=== PATIENT | female | born 1930 | race Caucasian/White ===

== ENCOUNTER 2016-05-06 05:00 | Inpatient (IN) | payer MEDICARE ==
[~2016-05-06] VITALS: Ht 154.9 cm; Wt 54.9 kg
[2016-05-06] VITALS (29 sets, daily range): BP systolic 77–201; BP diastolic 35–98
--- NOTE | ~2016-05-06 | PR ---
[place], [place] PROGRESS NOTE NAME: RAKEL RESTREPO [facility] #: [id number] UNIT #: [id number] ROOM: [facility] DOCTOR: ORALIA CERDA MD BIRTHDATE: [birth year] DOS: 05/08/2016 CARDIOLOGY PROGRESS NOTE SUBJECTIVE: The patient was seen at her bedside in the intensive care unit on 05/08/2016. The patient was seen at her bedside today. She tells me that she feels well. Unfortunately, she continues to have problems with hypotension every time she is given a beta cosme. Nitrates have been withheld for several days. Diuretics are also being withheld at this time. She is on aspirin, clopidogrel, and enoxaparin. She is also on antibiotics for possible pneumonia. I did look at her echocardiogram as it was being performed at the bedside. I would like to review the images in more detail, but she does have normal left ventricular size with left ventricular hypertrophy and normal systolic function. There was no obvious regional wall motion on my cursory evaluation. Her aortic valve is thickened with decreased excursion. It appears to have been a bicuspid structure. The peak gradient across the valve is about 5.6 meters per second yielding a peak instantaneous gradient across the valve of 130 mmHg. This is associated with mild aortic insufficiency. I did not have a chance to review the rest of the hemodynamics. PHYSICAL EXAMINATION: GENERAL: She is a frail elderly white female who is awake, alert and oriented. VITAL SIGNS: Pulse is 86 and regular, blood pressure is 93/43. She is afebrile and weighs 54.9 kilograms with a body mass index of 22.9. HEENT: Normocephalic, atraumatic. Extraocular muscles are intact. Sclerae are clear. Pupils are equal, round and reactive to light. The oral mucosa is moist. Tongue is midline. NECK: Supple. She has no jugular distention. Carotid upstrokes are slow. She has transmitted murmurs into the carotids bilaterally. She had no neck or supraclavicular masses. LUNGS: Respirations are unlabored. Her chest has decreased breath sounds at the bases, but is otherwise clear. HEART: Has a regular rhythm. She has a grade 4/6 late peaking systolic ejection murmur along the left sternal border. The second heart sound is obscured. I could not hear a diastolic murmur. The PMI was not displaced. ABDOMEN: Soft and normoactive. EXTREMITIES: Showed 1 to 2+ edema bilaterally. IMPRESSION: 1. Critical aortic stenosis. 2. Acute pulmonary edema, most likely due to severe aortic stenosis. 3. Acute non-ST elevation myocardial infarction. It is not clear at this point if the myocardial infarction was due to demand ischemia or underlying coronary artery disease. 4. Chronic obstructive pulmonary disease with ongoing cigarette abuse. PLAN: I discussed the patient's findings with her at great length. I told her that the only option was to replace the valve, and for most patients that means that she should have open heart surgery. She is afraid that she will in [place], [place] PROGRESS NOTE NAME: RAKEL RESTREPO UNIT #: [id number] ROOM: [facility] DOCTOR: PRASHANT BURGOS,ORALIA BIRTHDATE: [birth year] surgery. I did explain to her that there was an option to do a transaortic valve replacement (TAVR), but that the standard of care is still surgical replacement of the valve and whether she was a candidate for the TAVR procedure would depend upon other factors such as her pulmonary status, etc. At this point, she is not making a decision, but is telling us that she probably would not like to have any procedures done and would just like to go home. I did tell her that her prognosis for survival in that situation without valve replacement is under a year. For now, we will decrease the dose for her beta cosme and continue to withhold diuretics. We will await her discussions with family members and her final decision in the next [address] Rodriguez for asking our advice regarding her care. ORALIA CERDA MD CM:PNTRANS 06 ORALIA CERDA MD 05/08/162205 interface
--- NOTE | ~2016-05-06 | CON ---
[place], [place] REPORT OF CONSULTATION NAME: RAKEL RESTREPO UNIT #: [id number] ROOM: [facility] DOCTOR: RUMA HO MD BIRTHDATE: [birth year] DOS: 05/06/2016 NEPHROLOGY CONSULTATION REASON FOR CONSULTATION: Elevated creatinine. HISTORY OF PRESENT ILLNESS: This is an 85-year-old female who presented to the hospital with shortness of breath and chest pain. Apparently, she suddenly awoke in the morning with chest pain and difficulty breathing. She denied nausea, vomiting, fevers, chills or night sweats, back pain or abdominal pain. Her blood pressure was high and she also was felt to have possible COPD exacerbation. Antibiotics, nebs and diuretics were started. The patient's blood pressure was better controlled it seems following interventions. She was admitted to the Intensive Care Unit. Her initial creatinine was 1.26. The patient did have some transient hypotension noted. When I had seen her, she was awake and alert, actually eating dinner. She states she felt a lot better. She had a Hobbs catheter in place. The patient's true baseline creatinine is not clear. She denies having any chronic kidney disease. ALLERGIES: No known drug allergies. MEDICATIONS: Reviewed and include ceftriaxone, Zithromax, Lipitor, Lovenox, metoprolol. According to notes, she was not on any home medications. PAST MEDICAL HISTORY: Included apparent hypertension, but it does not appear that she was on any medications. She also has a history of a breast mass, status post excision, the detail is unclear to me. FAMILY HISTORY: No reported history of chronic kidney disease, otherwise noncontributory. SOCIAL HISTORY: She lives at home. REVIEW OF SYSTEMS: As per HPI, otherwise a 10-point review of systems was reviewed and was negative. PHYSICAL EXAMINATION: VITAL SIGNS: Temperature is 96.9, pulse 81, respiratory rate 17, blood pressure 104/53. HEENT: Shows no JVD. Sclerae are anicteric. Mucous membranes are moist. Pharynx is clear. NECK: Supple. Trachea midline. There is no neck lymphadenopathy. There is no thyromegaly. LUNGS: Diminished breath sounds, appreciable wheeze. She is not using accessory muscles of respiration. CARDIOVASCULAR: Normal S1, S2. No rub, no thrill, no gallop. ABDOMEN: Soft, nontender. There is no organomegaly or rigidity. There is no rebound or guarding. There is no CVA tenderness. EXTREMITIES: Had no edema. There is no lower extremity lymphadenopathy. Distal pulses are 2+. [place], [place] REPORT OF CONSULTATION NAME: RAKEL RESTREPO UNIT #: [id number] ROOM: [facility] DOCTOR: GEORGIA BURGOS,RUMA Ralph BIRTHDATE: [birth year] SKIN: Showed no overt rash. There is no petechiae or purpura. Skin temperature was warm. NEUROLOGIC: She is awake, alert and following commands. Cranial nerves were intact. LABORATORY DATA: Hemoglobin 13.5, white count of 11.9, platelets of 287, troponin I of 0.864, pH 7.28, pCO2 of 61. BUN 18, creatinine 1.26. Sodium 141, potassium 4.5, magnesium 2.6. IMPRESSION: 1. Likely chronic kidney disease. The patient has suspected stage 3 chronic kidney disease. I do believe her creatinine is likely near baseline. 2. Respiratory failure, which has improved. 3. Respiratory acidosis likely acute on chronic. 4. Likely non-ST elevation myocardial infarction. 5. Mild leukocytosis. 6. Probable urinary tract infection. PLAN: 1. Continue diuretics as felt needed. 2. Dose meds for current creatinine clearance. 3. Replace electrolytes as needed. 4. Follow creatinine trends. 5. Avoid hypotension. The patient's blood pressures are somewhat on the lower side. Would avoid large fluctuations of blood pressures. Thank you for this consultation. We will follow with you. RUMA HO MD CM:CONSTR:REPORT OF CONSULTATION 1606 05/07/16 1217 interface
--- NOTE | ~2016-05-06 | CON ---
[place], [place] REPORT OF CONSULTATION NAME[facility]PO [facility]: [id number] UNIT #: [id number] ROOM: [facility] DOCTOR: ORALIA CERDA MD BIRTHDATE: [birth year] DOS: 05/06/2016 REASON FOR CONSULTATION: Acute pulmonary edema and elevated troponin. HISTORY OF PRESENT ILLNESS: The patient is an 85-year-old woman who has been healthy her entire life. She rarely sees physicians. She is on no prescribed medications and denies any previous history of hypertension, diabetes, myocardial infarction or stroke. She is a smoker and smokes over a pack of cigarettes a day. She states that for the last month or two, she has had episodic indigestion which she describes as heartburn in the center of her chest. Over that time, she has also noticed peripheral edema. She woke at about 2:30 this morning with sudden onset of dyspnea. She felt she could not catch her breath and she also had severe indigestion in the center of her chest at that time. She came to the Emergency Room where her EKG did not show acute EKG changes, although there is a suggestion of a slight ST elevation in lead V1. Her chest x-ray did show heart failure and she was diuresed with Bumex. She did put out considerable fluid and so far is negative 1.6 liters fluid balance. Her initial troponin level was 0.047, but upon repeat was 0.864 consistent with a non-ST elevation myocardial infarction. We were asked to assist in her evaluation. In the Emergency Room, her blood pressure was initially high. She was given intravenous beta cosme and EDWARD inhibitor without much benefit. She was then placed on IV nitroglycerin with a rapid fall in her blood pressure. The nitroglycerin was stopped and her blood pressure has now recovered. Since she is diuresed, she feels considerably better. PAST MEDICAL HISTORY: Essentially unremarkable. She specifically denies myocardial infarction or stroke. She denies hypertension, diabetes or hyperlipidemia, but again, she does not see physicians frequently. MEDICATIONS: Prior to admission Aleve p.r.n., which she takes once or twice a month. ALLERGIES: She has no known drug allergies. FAMILY HISTORY: Negative for early coronary artery disease. REVIEW OF SYSTEMS: The patient denied diplopia or loss of vision. She denied lightheadedness or syncope and specifically denies having any post-exercise syncopal episodes. She denies focal weakness. She denies any loss of vision or speech. She denies nausea or vomiting. She denies hemoptysis or hematemesis. She denies any change in her appetite or recent weight change. She denies bleeding in her stools or urine. She does admit that her legs have been swollen for the last 2-3 months and she has been short of breath. She has also had episodic indigestion which she describes as heartburn in the center of her chest. The remainder of the review of systems is negative except as noted above. SOCIAL HISTORY: The patient lives alone. She is able to care for all her own [place], [place] REPORT OF CONSULTATION NAME: RAKEL RESTREPO UNIT #: [id number] ROOM: [facility] DOCTOR: ORALIA CERDA MD BIRTHDATE: [birth year] home chores. She no longer drives, but she remains active and volunteers at the [employer] in [place]. PHYSICAL EXAMINATION: GENERAL: She is a slender white female, who is awake, alert and oriented. VITAL SIGNS: Pulse is 80 and regular, blood pressure is 104/53. She is afebrile. She weighs 54.9 kg and has a body mass index 22.9. HEENT: Normocephalic and atraumatic. Extraocular muscles are intact. Sclerae are clear. Pupils are equal, round and reactive to light. Oral mucosa is moist. Tongue is midline. NECK: Supple. She does have mild jugular distention with hepatojugular reflux present. Carotid upstrokes are diminished. She does have loud transmitted murmurs into the carotids bilaterally. There are no neck or supraclavicular masses and no thyromegaly. LUNGS: Respirations are unlabored at rest. She does have scattered rales about half of the way up. She has a few wheezes. She has no dullness. She does have expiratory prolongation bilaterally. CARDIOVASCULAR: Her heart has a regular rhythm. She has a grade 4/6 late peaking systolic ejection murmur along the left sternal border. The first heart sound is normal. The second heart sound is obscured. I did not hear any diastolic murmurs. The PMI was not displaced. There is no precordial heave, lift or thrill. ABDOMEN: Soft and normally active without masses, organomegaly or bruits. EXTREMITIES: Showed 2+ edema bilaterally. I could not feel pedal pulses bilaterally. DIAGNOSTIC DATA: I reviewed her electrocardiogram. It shows sinus tachycardia with possible mild ST elevation in lead V1. She has nonspecific T-wave flattening in multiple leads. There is no heart block seen. I reviewed her chest x-ray which showed cardiomegaly and a pulmonary edema pattern. There were no pulmonary effusions or infiltrates. Troponin level on admission was mildly elevated at 0.047, but upon repeat was definitely elevated at 0.864. IMPRESSION: 1. Acute non-ST elevation myocardial infarction. 2. Acute pulmonary edema, improved with diuresis. 3. Aortic stenosis on exam, which may be severe. PLAN: For now, we will treat the patient with low dose beta blockers, diuretics as needed and antiplatelet agents as well as low molecular weight heparin. I am avoiding nitrates at this point because I believe she does have severe aortic stenosis and her blood pressure fell dramatically when she was given nitrites earlier in the hospitalization. An echocardiogram is scheduled, but will probably not be done until 05/08/2016. I did speak to the patient about the fact that she did have a heart attack and probably will need a cardiac catheterization at some point. I also told her that I believe she has significant valvular heart disease and may require valve replacement. She told me she was not interested in having a lot done, but did not yet refused to have any further diagnostic studies or therapeutic efforts. [place], [place] REPORT OF CONSULTATION NAME: RAKEL RESTREPO Marco UNIT #: [id number] ROOM: [facility] DOCTOR: ORALIA CERDA MD BIRTHDATE: [birth year] We will follow her while she is in the hospital and I thank Dr. Rodriguez for asking our advice regarding her care. ORALIA CERDA MD CM:CONSTR:REPORT OF CONSULTATION 1549 05/07/16 1155 interface
--- NOTE | ~2016-05-06 | PR ---
[place], [place] PROGRESS NOTE [id number] UN[facility] #: [id number] ROOM: [facility] DOCTOR: GEORGIA BURGOS,RUMA Ralph BIRTHDATE: [birth year] DOS: 05/08/2016 I came to evaluate the patient. She was not in the room at time I had seen her. I was able to review her labs. Her creatinine level now is 0.69 with a BUN of 15. Her electrolytes are all essentially within normal limits. At this time, there are no renal issues. We will sign off for now. Please call us if needed again. RUMA HO MD CM:PNTRANS [phone] RUMA HO MD 05/09/16 0045 interface
--- NOTE | ~2016-05-06 | PR ---
[place], [place] PROGRESS NOTE NAME: RAKEL RESTREPO [facility] #: [id number] UNIT #: [id number] ROOM: [facility] DOCTOR: ORALIA CERDA MD BIRTHDATE: [birth year] DOS: 05/10/2016 CARDIOLOGY PROGRESS NOTE SUBJECTIVE: The patient was seen at her bedside in the intensive care unit today, 05/10/2016, for followup of her critical aortic stenosis. The patient was seen at her bedside today 05/10/2016. She tells me that she feels fine and denies any lightheadedness, chest pain or dyspnea. She has had a long conversation with family members and Dr. Rodriguez and has decided to proceed with cardiac catheterization in preparation for aortic valve replacement. She did have a lot of questions regarding transfer to [facility] and I answered them to the best of my ability. PHYSICAL EXAMINATION: VITAL SIGNS: Today, her pulse is 84 and regular, blood pressure is 100/46. She is afebrile. She weighs 54.9 kg and has a body mass index of 22.9. HEENT: Normocephalic and atraumatic. Extraocular muscles are intact. Sclerae are clear. Her oral mucosa is moist and tongue is midline. NECK: Supple. She has no jugular distention. She does have mild hepatojugular reflux. Carotids have decreased upstrokes and transmitted murmurs into the carotids bilaterally. LUNGS: Respirations are unlabored. She has decreased breath sounds at the bases and slight dullness at the bases. There are no rales. HEART: Has a regular rhythm. She has a grade 4/6 late peaking systolic ejection murmur along the left sternal border, which radiates well into the neck. No diastolic murmurs are heard. The second heart sound is obscured. The PMI is not displaced. There is no precordial heave, lift or thrill. ABDOMEN: Soft and normoactive. EXTREMITIES: Showed 1+ edema bilaterally. LABORATORY DATA: Hemoglobin today is 10.5 with hematocrit 32.9, there are 5600 white cells and 169,000 platelets. Her sodium on 05/08/2016 was 141, potassium 4.3, BUN 15 and creatinine 0.69. CURRENT MEDICATIONS: Include metoprolol succinate 12.5 mg daily; enoxaparin 60 mg q. 12 hours, last dose was at 10:30 a.m. on 05/10/2016 after which the drug was discontinued; aspirin 81 mg daily; atorvastatin 80 mg every evening; clopidogrel 75 mg daily; ceftriaxone 1 g IV daily; azithromycin 500 mg IV daily; magnesium hydroxide p.r.n.; albuterol by nebulizer p.r.n.; acetaminophen p.r.n. IMPRESSION: 1. Critical aortic stenosis. 2. Acute pulmonary edema due to acute diastolic heart failure from severe aortic stenosis. 3. Acute non-ST elevation myocardial infarction, most likely due to demand ischemia with underlying coronary artery disease. 4. Chronic obstructive pulmonary disease. The patient did have ongoing cigarette abuse prior to this admission. PLAN: The patient has agreed to cardiac catheterization. I explained to her [place], [place] PROGRESS NOTE NAME: RAKEL RESTREPO UNIT #: [id number] ROOM: [facility] DOCTOR: ORALIA CERDA MD BIRTHDATE: [birth year] the risk of cardiac catheterization including heart attack, stroke, , bleeding, bruising, dye reaction and irregular heartbeats, infections, etc. Despite these risks, she has agreed to proceed. We will transfer her to [facility] in the morning for catheterization. I have discussed the procedure with Dr. Sergio Reardon, who will most likely be doing the procedure. Her indication is #70 with a score of 7. I thank Dr. Rodriguez for asking our advice regarding her care. ORALIA CERDA MD CM:PNTRANS [phone] ORALIA CERDA MD 05/11/16 0253 interface
--- NOTE | ~2016-05-06 | PR ---
[place], [place] PROGRESS NOTE NAME: RAKEL RESTREPO [facility] #: [id number] UNIT #: [id number] ROOM: [facility] DOCTOR: ORALIA CERDA MD BIRTHDATE: [birth year] DOS: 05/09/2016 SUBJECTIVE: The patient was seen at her bedside today 05/09/2016 in the Intensive Care Unit. Her granddaughter and grandson were in attendance. She tells me that she feels fine and is anxious to get up, but her blood pressure still remains very marginal. I did explain to the patient again and also to her grandchildren that she has critical aortic stenosis and the prognosis from this is very poor. The only management strategy that works is to replace the valve and the patient once again stated that she is afraid. PHYSICAL EXAMINATION: VITAL SIGNS: Today, her pulse is 85 and regular, blood pressure is 90/60. She is afebrile. NECK: Supple. She has no jugular distention. She does have hepatojugular reflux. Carotids are full. Carotids have decreased upstrokes. I heard bruits transmitted into the carotids from the heart bilaterally. LUNGS: Respirations were unlabored. She has decreased breath sounds at the bases. HEART: Regular rhythm. She has a grade 4/6 late peaking systolic ejection murmur along the left sternal border radiating toward the base. No diastolic murmurs are present. The second heart sound is obscured. ABDOMEN: Benign. EXTREMITIES: Showed 1-2+ edema bilaterally. LABORATORY DATA: I reviewed her echocardiogram yesterday in detail. Left ventricular size is normal. She does have severe concentric left ventricular hypertrophy. Ejection fraction is 60-65%, transmitral Doppler flow pattern suggests pseudonormalization with stage II diastolic dysfunction. The right ventricle appears normal. The right atrium is normal in size. The aortic valve leaflets are severely thickened and immobile. The valve may be a bicuspid valve. She has trace to mild aortic insufficiency with critical aortic stenosis. The peak and mean transvalvular gradients are 125 and 79 mmHg respectively. The valve area by the continuity equation is 0.3 sq cm with the dimensionless VTI ratio of 0.11. IMPRESSION: 1. Critical aortic stenosis. 2. Acute pulmonary edema due to acute diastolic heart failure from severe aortic stenosis. 3. Acute non-ST elevation myocardial infarction. This is probably due to a combination of demand ischemia with underlying coronary artery disease. 4. Chronic obstructive pulmonary disease with ongoing cigarette abuse. PLAN: I discussed the patient's findings with her and her grandchildren at length. I told them that her only option was to replace the valve and for most patients that does mean open heart surgery. She is afraid that she will in surgery. I explained to her the option of TAVR, but I did reiterate standard care still surgical replacement of the valve and I could not stay at this time whether she truly was a candidate for that to have her procedure. [place], [place] PROGRESS NOTE NAME: RAKEL RESTREPO UNIT #: [id number] ROOM: [facility] DOCTOR: PRASHANT BURGOS,ORALIA BIRTHDATE: [birth year] The patient remains reluctant to commit although her family would still like her to consider it. They will be discussing her prognosis again this evening and I will await their decision. I thank Dr. Rodriguez for asking our advice regarding her care. ORALIA CERDA MD CM:PNTRANS [phone] ORALIA CERDA MD 05/09/161953 interface
--- NOTE | ~2016-05-06 | PR ---
[place], [place] PROGRESS NOTE NAME[facility]INA [facility]PO [id number] UNIT #: [id number] ROOM: [facility] DOCTOR: GUERO BURGOS,AC BIRTHDATE: [birth year] DOS: 05/09/2016 Ewelina is doing better, sitting in the chair. PHYSICAL EXAMINATION: GENERAL: Pleasant woman in no apparent distress. VITAL SIGNS: Blood pressure is 90/60, respirations 26, pulse 85, temperature 98.8. HEENT: Normocephalic, atraumatic. Pupils are reactive. Nonicteric sclerae. NECK: Supple. No JVD, thyromegaly or lymphadenopathy. LUNGS: Clear to auscultation and percussion. HEART: S1, S2, no S3. There is a systolic murmur. ABDOMEN: Soft, nontender. Bowel sounds positive. EXTREMITIES: Positive pulses. NEUROLOGIC: Oriented to person, place, and time. MENTAL STATUS: Appropriate for mood and affect. LABORATORY DATA: White count of 5.2, hemoglobin 10.9, hematocrit 33.5, MCV 100.0, platelet count of 189. ASSESSMENT: 1. Neutropenia has resolved. 2. Anemia, probably of chronic disease. 3. Macrocytosis due to B12 deficiency. 4. B12 deficiency. PLAN: Continue vitamin B12. We will keep a close watch on her hemoglobin and hematocrit. If it drops further, then intervention. We also get anemia workup. Discussed with the patient in detail. AC JACK MD CM:PNTRANS [id number] CA JACK MD 05/10/16 0318 interface
--- NOTE | ~2016-05-06 | PR ---
[place], [place] PROGRESS NOTE NAME: RAKEL RESTREPO [facility] #: [id number] UNIT #: [id number] ROOM: [facility] DOCTOR: ORALIA CERDA MD BIRTHDATE: [birth year] DOS: 05/07/2016 SUBJECTIVE: The patient was seen at her bedside in the intensive care unit today 05/07/2016 for followup of a non-ST elevation myocardial infarction and probable severe aortic stenosis. The patient is awake and alert. She is currently receiving a breathing treatment. She tells me that she feels "great." She denies any chest pain, palpitations or dyspnea. She denies lightheadedness or syncope. PHYSICAL EXAMINATION: VITAL SIGNS: Today, her pulse is 82 and regular; blood pressure is 80/38. She is afebrile. She weighs 54.9 kilograms with a body mass index of 22.9. NECK: Supple. She had no jugular distention or hepatojugular reflux. Carotids were full. I heard no bruits. She does have transmitted murmurs into the carotids bilaterally. LUNGS: Respirations are unlabored at rest. She has decreased breath sounds at the bases, but I did not hear any wheezes or rales. She had no presacral edema. HEART: Her heart had a regular rhythm. She has a grade 4/6 late peaking harsh systolic ejection murmur along the left sternal border. The second heart sound was obscured. There was no precordial heave, lift or thrill. No diastolic murmurs are present. She had a fourth heart sound but I did not hear a third heart sound. ABDOMEN: Soft and normoactive. EXTREMITIES: Showed 1+ edema bilaterally. IMPRESSION: 1. Acute non-ST elevation myocardial infarction. 2. Acute pulmonary edema, improved with diuresis. 3. Aortic stenosis by examination, which may be severe. PLAN: We will withhold diuretics for the present time and continue low dose beta cosme as tolerated by her pressure. She will continue aspirin and clopidogrel along with enoxaparin. We will continue to withhold nitrates because of her hypotension initially when nitrates were given. We will review her echocardiogram when it is available, we will make further recommendations at that time. We thank Dr. Rodriguez for asking our advice regarding her care. [place], [place] PROGRESS NOTE NAME: RAKEL RESTREPO UNIT #: [id number] ROOM: [facility] DOCTOR: ORALIA CERDA MD BIRTHDATE: [birth year] ORALIA CERDA MD CM:ZHANE [id number] ORALIA CERDA MD 05/08/16925 interface
--- NOTE | ~2016-05-06 | O ---
[place], [place] OPERATIVE NOTE [id number] UN[facility] #: [id number] ROOM: [facility] DOCTOR: NASREEN CHAUHAN III, DPM BIRTHDATE: [birth year] DOS: TIME OF DICTATION: 12:13 p.m. CHIEF COMPLAINT: Routine foot care. HISTORY OF PRESENT ILLNESS: This is an 85-year-old female who recently presented to the Emergency Room for chief complaint of chest pain as well as shortness of breath on 05/06/2016. The patient is currently admitted to the ICU where she appears to be in no acute stress. The patient states she has seen a senior qa analyst in the past but no one recently. She denies any ulcerations or signs of infection. PAST MEDICAL HISTORY: Significant for acute respiratory failure as well as pulmonary edema. FAMILY HISTORY: Significant for malignant neoplasm. ALLERGIES: No known drug allergies. MEDICATIONS: Include Toprol, Lovenox, aspirin, atorvastatin, clopidogrel, ceftriaxone, azithromycin, magnesium hydroxide, albuterol, ipratropium and acetaminophen. PHYSICAL EXAMINATION: VITAL SIGNS: Temperature 98.4, pulse rate of 84, respiratory rate of 21, blood pressure 100/46. VASCULAR: DP and PT pulses are barely palpable, CFT is delayed, shiny atrophic skin appreciated bilateral. Multiple varicosities appreciated. Bilateral lower extremity edema consistent with chronic venous insufficiency. DERMATOLOGY: The patient has nails 1 through 5 bilateral are elongated and thickened with mycotic debris. She has callus seen to the medial first MTPJ bilateral as well as the hallux IPJ on the left. No signs of infection or ulcerations. NEUROLOGIC: Intact, protective sensation. ORTHOPEDIC: Muscle strength appears to be intact. Negative Homans', negative calf pain. ASSESSMENT: 1. Peripheral arterial disease. 2. Onychomycosis. 3. Callus formation. 4. Edema with venous insufficiency. Treatment plans, recommendations, findings as well as prognosis were discussed in detail with the patient. All questions were answered to her apparent satisfaction. This is an 85-year-old female seen at bedside for routine foot care. This is an 85-year-old female seen at the bedside for routine foot care. Nails 1 through 5 bilateral were debrided in length and thickness without incident. No further issues are appreciated at this time. The patient will be [place], [place] OPERATIVE NOTE NAME: RAKEL RESTREPO UNIT #: [id number] ROOM: [facility] DOCTOR: NASREEN CHAUHAN III, DPM BIRTHDATE: [birth year] consulted as needed. We are going to follow up with the patient on an outpatient basis. NASREEN CHAUHAN III, DPM CM:OPRECORD:OPERATIVE NOTE [id number] NASREEN CHAUHAN III, DPM 05/10/16 1328 interface
--- NOTE | ~2016-05-06 | EKG ---
[place], [place] ELECTROCARDIOGRAM REPORT NAME: RAKEL RESTREPO UNIT #: [id number] ROOM: [facility] DOCTOR: ТАТЬЯНА BERKOWITZ MD BIRTHDATE: [birth year] DOS: 05/06/2016 TIME: 5:12:14 RATE AND RHYTHM: Sinus tachycardia at [address] interval 152 milliseconds, QRS duration 82 milliseconds, corrected QT interval 459 milliseconds. QRS axis 20. IMPRESSION: 1. Sinus tachycardia. 2. Minimal ST elevation in lead V1. 3. Cardiac enzymes were elevated and the patient had non-STEMI diagnosed. Dr. Giles is on the case, was consulted. ТАТЬЯНА BERKOWITZ MD CM:EKGRPT:ELECTROCARDIOGRAM REPORT [id number] ТАТЬЯНА BERKOWITZ MD
--- NOTE | ~2016-05-06 | CON ---
[place], [place] REPORT OF CONSULTATION NAME: RAKEL RESTREPO UNIT #: [id number] ROOM: [facility] DOCTOR: AC JACK MD BIRTHDATE: [birth year] DOS: 05/08/2016 HISTORY OF PRESENT ILLNESS: She is a pleasant 85-year-old [place] woman [place], [place] REPORT OF CONSULTATION NAME: RAKEL RESTREPO UNIT #: [id number] ROOM: [facility] DOCTOR: AC JACK MD BIRTHDATE: [birth year] who was still complaining of chest pain and shortness of breath. Subsequently, came to the Emergency Department by a private vehicle. As per the patient, she suddenly woke up in the morning with chest pain ____ shortness of breath and subsequently she was admitted. Routine CBC examination, she was found to be thrombocytopenic and consulted for further evaluation and management. PAST MEDICAL HISTORY: Significant for acute respiratory failure and pulmonary edema. FAMILY HISTORY: Metastases and neoplasm. ALLERGIES: No known allergies. MEDICATIONS: On metoprolol, lorazepam, Bumex. REVIEW OF SYSTEMS: HEENT: Denies headaches, blurring of vision or dizziness. CARDIOVASCULAR: As above. GASTROINTESTINAL: No nausea, vomiting, change in bowel habits, loss of weight, hematemesis or bright red blood per rectum, constipation or diarrhea. GENITOURINARY: No increased frequency, urgency or burning sensation in the urine or difficulty micturating. NEUROLOGIC: Denies syncope, paresthesia or tremor. VASCULAR: Denies phlebitis or varicose veins. INTEGUMENT: Denies rashes, pruritus or skin moles. HEMATOLOGIC: No eosinophilia or hemophilia. IMMUNOLOGIC: No immunologic defects. ENDOCRINE: No history of thyroid dysfunction, diabetes. PHYSICAL EXAMINATION: GENERAL: She is a pleasant woman in no apparent distress. VITAL SIGNS: Stable. She is afebrile. HEENT: Normocephalic, atraumatic. Pupils are reactive. Nonicteric sclerae. NECK: Supple. No JVD, thyromegaly or lymphadenopathy. LUNGS: Bilateral rhonchi. HEART: S1, S2. No S3. ABDOMEN: Soft, nontender. Bowel sounds positive. No rebound or guarding. No hepatosplenomegaly. EXTREMITIES: Positive pulses. NEUROLOGIC: Oriented to person, place, and time. MENTAL STATUS: Appropriate mood and affect. LYMPH NODES: No lymphadenopathy in the cervical, supraclavicular, axillary, inguinal regions. LABORATORY DATA: White count 11.9, hemoglobin 13.5, hematocrit 43.9, MCV 104.3, platelet count of 287. Peripheral smear showed lymphocytes 49, neutrophils of 31 from 05/06/2016. From 05/08/2016, white count 5.2, hemoglobin 10.9, hematocrit 33.5, MCV 100.0, platelet count of 189. ASSESSMENT: [place], [place] REPORT OF CONSULTATION NAME: RAKEL RESTREPO UNIT #: [id number] ROOM: [facility] DOCTOR: AC JACK MD BIRTHDATE: [birth year] 1. Macrocytosis secondary to B12 deficiency. 2. Leukopenia, if there was, has normalized. Lymphocytosis has normalized. 3. Non Q wave myocardial infarction. PLAN: We will just keep a close watch at this time. Her counts are getting better. The patient will be followed with further evaluation. If anything changes, then further evaluation. Discussed with the patient. Ample time was given to the patient to ask me questions. We will follow. Thanks for consulting and letting me participate in the care of this interesting patient. AC JACK MD CM:CONSTR:REPORT OF CONSULTATION 1431 06/15/16 1542 interface
[2016-05-06 05:38] LABS: HEMATOCRIT 43.9 % (37.0-47.0); HEMOGLOBIN 13.5 g/dl (12.0-16.0); MEAN CELL VOLUME 104.3 fl (81.0-99.0); MEAN CORPUSCULAR HGB 32.1 pg (27.0-31.0); MEAN CORPUSCULAR HGB CONC 30.8 g/dl (33.0-37.0); MEAN PLATELET VOLUME 10.6 fl (9.6-12.3); PLATELET COUNT AUTOMATED 287 10*3/uL (130-400); RED BLOOD COUNT 4.21 10*6/uL (4.10-5.10); RED CELL DISTRI WIDTH 13.4 % (0-14.5); WHITE BLOOD COUNT 11.9 10*3/uL (4.8-10.8)
[2016-05-06 05:57] LABS: MAGNESIUM 2.6 mg/dL (1.5-2.1); POTASSIUM 4.5 mmol/L (3.5-5.1)
[2016-05-06 05:59] LABS: ATYPICAL LYMPHS 1 % (0-0); BASOPHIL # 0.1 10*3/uL (0-0.1); BASOPHILS 1 % (0-1); BURR CELLS MODERATE; EOSINOPHIL # 0.6 10*3/uL (0-0.4); EOSINOPHILS 5 % (1-4); MONOCYTE # 1.5 10*3/uL (0.1-1.0); NEUTROPHIL # 3.7 10*3/uL (2.3-7.9); NEUTROPHILS 31 % (47-73); PLATELET SUFFICIENCY NORMAL (NORMAL); TOTAL CELLS COUNTED 100 #CELLS
[2016-05-06 06:56] LABS: BILIRUBIN NEGATIVE (NEGATIVE); BLOOD TRACE-INTACT (NEGATIVE); CLARITY SL CLOUDY (CLEAR); COLOR YELLOW (YELLOW); GLUCOSE NEGATIVE (NEGATIVE); KETONE NEGATIVE (NEGATIVE); LEUKO ESTERASE 1+ (NEGATIVE); NITRITE NEGATIVE (NEGATIVE); PROTEIN 1+ (NEGATIVE); UROBILINOGEN 0.2 E.U./dl (0.2-1.0)
[2016-05-06 07:08] LABS: ABG BASE EXCESS 0.4 mmol/L (-2.0-2.0); ABG CO2 CONTENT 29.8 mmol/L (23-27); ABG HCO3 27.9 mmol/l (22-26); ARTERIAL BLOOD GAS PH 7.28 (7.35-7.45)
[2016-05-06 07:15] LABS: BACTERIA 2+; WBC 31-40 wbc/hpf (0-5)
[2016-05-06 07:16] LABS: URINE REFLEX COMMENT YES (NO)
[2016-05-06 12:25] LABS: CKMB 5.1 ng/ml (0.5-3.6)
[2016-05-06 13:45] LABS: MAGNESIUM 2.3 mg/dL (1.5-2.1); PHOSPHOROUS 4.6 mg/dL (2.5-4.9)
[2016-05-06 18:22] LABS: CKMB 4.2 ng/ml (0.5-3.6)
[2016-05-06 19:22] LABS: FOLIC ACID 8.96 ng/mL (>5.38)
[2016-05-07 04:00] VITALS: BP 93/41
[2016-05-07 06:09] LABS: BUN 18 mg/dl (7-24); CARBON DIOXIDE 30 mmol/L (21-32); CHLORIDE 103 mmol/L (98-107); EST GLOM FILT AFRICAN AMERICAN > 60 ml/min; GLUCOSE 98 mg/dL (65-99); POTASSIUM 4.2 mmol/L (3.5-5.1); SODIUM 140 mmol/L (136-145)
[2016-05-07 06:14] LABS: CKMB 2.8 ng/ml (0.5-3.6)
[2016-05-07 06:22] LABS: CHOLESTEROL 117 mg/dL (<200); HDL CHOLESTEROL 60 mg/dl (40-60); LDL CHOLESTEROL 46 mg/dL (9-159); TRIGLYCERIDES 56 mg/dl (<150); VLDL CHOLESTEROL 11 mg/dL (6-40)
[2016-05-07 07:02] LABS: BASO # 0.1 10*3/uL (0.0-0.1); EOS # 0.1 10*3/uL (0.0-0.4); EOS % 2.3 % (1.0-4.0); LYMPH # 1.4 10*3/uL (1.3-4.4); LYMPH % 26.4 % (27.0-41.0); MEAN CELL VOLUME 101.6 fl (81.0-99.0); MEAN CORPUSCULAR HGB 32.3 pg (27.0-31.0); MEAN CORPUSCULAR HGB CONC 31.8 g/dl (33.0-37.0); MONO # 0.6 10*3/uL (0.1-1.0); MONO % 12.1 % (3.0-9.0); NEUT % 57.8 % (47.0-73.0); RED BLOOD COUNT 3.22 10*6/uL (4.10-5.10); RED CELL DISTRI WIDTH 13.2 % (0-14.5); WHITE BLOOD COUNT 5.1 10*3/uL (4.8-10.8)
[2016-05-07 07:08] LABS: HEMATOCRIT 32.7 % (37.0-47.0); HEMOGLOBIN 10.4 g/dl (12.0-16.0); PLATELET COUNT AUTOMATED 176 10*3/uL (130-400)
[2016-05-07 08:00] VITALS: BP 100/44
[2016-05-07 12:00] VITALS: BP 80/40
[2016-05-07 14:15] VITALS: BP 80/38
[2016-05-07 16:11] VITALS: BP 89/31
[2016-05-07 20:00] VITALS: BP 109/44
[2016-05-08] VITALS (9 sets, daily range): BP systolic 84–107; BP diastolic 33–43
[2016-05-08 06:15] LABS: BASO # 0.1 10*3/uL (0.0-0.1); EOS # 0.2 10*3/uL (0.0-0.4); EOS % 2.9 % (1.0-4.0); HEMATOCRIT 33.5 % (37.0-47.0); HEMOGLOBIN 10.9 g/dl (12.0-16.0); LYMPH # 1.6 10*3/uL (1.3-4.4); LYMPH % 30.4 % (27.0-41.0); MEAN CORPUSCULAR HGB 32.5 pg (27.0-31.0); MEAN CORPUSCULAR HGB CONC 32.5 g/dl (33.0-37.0); MEAN PLATELET VOLUME 11.2 fl (9.6-12.3); MONO # 0.6 10*3/uL (0.1-1.0); MONO % 11.3 % (3.0-9.0); NEUT # 2.9 10*3/uL (2.3-7.9); NEUT % 54.4 % (47.0-73.0); PLATELET COUNT AUTOMATED 189 10*3/uL (130-400); RED BLOOD COUNT 3.35 10*6/uL (4.10-5.10); RED CELL DISTRI WIDTH 13.2 % (0-14.5); WHITE BLOOD COUNT 5.2 10*3/uL (4.8-10.8)
[2016-05-08 06:33] LABS: ALBUMIN 2.9 gm/dl (3.1-4.5); ALKALINE PHOSPHATASE 60 U/L (45-117); BILIRUBIN, TOTAL 0.4 mg/dl (0.2-1.0); BUN 15 mg/dl (7-24); CARBON DIOXIDE 30 mmol/L (21-32); CHLORIDE 102 mmol/L (98-107); EST GLOM FILT AFRICAN AMERICAN > 60 ml/min; GLUCOSE 94 mg/dL (65-99); POTASSIUM 4.3 mmol/L (3.5-5.1); SGOT/AST 25 IU/L (3-35); SGPT/ALT 24 U/L (12-78); SODIUM 141 mmol/L (136-145); TOTAL PROTEIN 6.1 gm/dL (6.4-8.2)
[2016-05-09] VITALS (7 sets, daily range): BP systolic 87–119; BP diastolic 35–60
[2016-05-10] VITALS: BP 105/51
[2016-05-10 04:00] VITALS: BP 99/45
[2016-05-10 05:44] LABS: IRON 29 ug/dL (50-170); IRON SATURATION 8 %; UIBC 314 ug/dL (110-365)
[2016-05-10 06:03] LABS: BASO % 0.7 % (0.0-1.0); EOS # 0.2 10*3/uL (0.0-0.4); EOS % 2.8 % (1.0-4.0); HEMATOCRIT 32.9 % (37.0-47.0); HEMOGLOBIN 10.5 g/dl (12.0-16.0); LYMPH # 1.3 10*3/uL (1.3-4.4); LYMPH % 23.6 % (27.0-41.0); MEAN CELL VOLUME 100.6 fl (81.0-99.0); MEAN CORPUSCULAR HGB 32.1 pg (27.0-31.0); MEAN CORPUSCULAR HGB CONC 31.9 g/dl (33.0-37.0); MEAN PLATELET VOLUME 11.2 fl (9.6-12.3); MONO # 0.8 10*3/uL (0.1-1.0); MONO % 14.5 % (3.0-9.0); NEUT # 3.3 10*3/uL (2.3-7.9); PLATELET COUNT AUTOMATED 169 10*3/uL (130-400); RED BLOOD COUNT 3.27 10*6/uL (4.10-5.10); RED CELL DISTRI WIDTH 13.1 % (0-14.5); WHITE BLOOD COUNT 5.6 10*3/uL (4.8-10.8)
[2016-05-10 08:00] VITALS: BP 100/46
[2016-05-10 12:00] VITALS: BP 98/42
[2016-05-10 16:00] VITALS: BP 102/44
[2016-05-10] MEDS ORDERED: DUONEB 3 MG/3 ML3 M1 NEB (19:08)
[2016-05-10] MEDS ORDERED: ASPIRIN ADULT L81 M2 PO (19:08)
[2016-05-10] MEDS ORDERED: CLOPIDOGREL75 MG PO (19:08)
[2016-05-10] MEDS ORDERED: ATORVASTATIN CA80 M1 PO (19:08)
[2016-05-10] MEDS ORDERED: METOPROLOL SUCC25 M2 PO (19:08)
[2016-05-10] MEDS ORDERED: CEFTRIAXONE1 GM IJ (19:08)
[2016-05-10 20:00] VITALS: BP 128/55
[2016-05-11] VITALS: BP 131/56
[2016-05-11 04:00] VITALS: BP 122/62
[2016-05-11 06:00] LABS: BASO % 0.4 % (0.0-1.0); EOS % 0.5 % (1.0-4.0); HEMATOCRIT 31.9 % (37.0-47.0); HEMOGLOBIN 10.3 g/dl (12.0-16.0); LYMPH # 0.8 10*3/uL (1.3-4.4); LYMPH % 9.7 % (27.0-41.0); MEAN CELL VOLUME 98.8 fl (81.0-99.0); MEAN CORPUSCULAR HGB 31.9 pg (27.0-31.0); MEAN CORPUSCULAR HGB CONC 32.3 g/dl (33.0-37.0); MONO # 0.9 10*3/uL (0.1-1.0); NEUT # 6.1 10*3/uL (2.3-7.9); PLATELET COUNT AUTOMATED 176 10*3/uL (130-400); RED BLOOD COUNT 3.23 10*6/uL (4.10-5.10); RED CELL DISTRI WIDTH 12.8 % (0-14.5); WHITE BLOOD COUNT 7.9 10*3/uL (4.8-10.8)
[2016-05-11 06:13] LABS: BUN 12 mg/dl (7-24); CARBON DIOXIDE 28 mmol/L (21-32); CHLORIDE 102 mmol/L (98-107); EST GLOM FILT AFRICAN AMERICAN > 60 ml/min; GLUCOSE 112 mg/dL (65-99); SODIUM 137 mmol/L (136-145)
[2016-05-11 06:16] LABS: PROTHROMBIN TIME 10.6 SECONDS (9.0-12.4)
[2016-05-11 08:00] VITALS: BP 110/46
== END 2016-05-11 08:08 | disposition short-term general hospital (02) | DRG 871 ==
LOC: ED 05:00 → EDHOLD 06:31 → ICCU 06:31
PROVIDERS: Emergency Medicine Emergency Medical Services; Internal Medicine; Internal Medicine Cardiovascular Disease; Internal Medicine Hematology & Oncology
DX: A41.9 Sepsis, unspecified organism (principal); J96.01 Acute respiratory failure with hypoxia; I21.4 Non-ST elevation (NSTEMI) myocardial infarction; J96.02 Acute respiratory failure with hypercapnia; N17.9 Acute kidney failure, unspecified; I50.31 Acute diastolic (congestive) heart failure; D63.8 Anemia in other chronic diseases classified elsewhere; B35.1 Tinea unguium; N39.0 Urinary tract infection, site not specified; I13.0 Hypertensive heart and chronic kidney disease with heart failure and stage 1 through stage 4 chronic kidney disease, or unspecified chronic kidney disease; E53.8 Deficiency of other specified B group vitamins; F17.210 Nicotine dependence, cigarettes, uncomplicated; N18.3 Chronic kidney disease, stage 3 (moderate); I73.9 Peripheral vascular disease, unspecified; I25.10 Atherosclerotic heart disease of native coronary artery without angina pectoris; L84 Corns and callosities; D75.89 Other specified diseases of blood and blood-forming organs; R01.1 Cardiac murmur, unspecified; I35.0 Nonrheumatic aortic (valve) stenosis; Z79.899 Other long term (current) drug therapy

== ENCOUNTER → 2016-09-21 | Outpatient (CLI) | payer MEDICARE ==
[~2016-09-21] MED LIST: ASPIRIN ADULT L81 M2 PO; ATORVASTATIN CA80 M1 PO; CEFTRIAXONE1 GM IJ; CLOPIDOGREL75 MG PO; DUONEB 3 MG/3 ML3 M1 NEB; METOPROLOL SUCC25 M2 PO
== END | disposition home or self-care (01) ==
LOC: RAD 10:13
DX: Z13.820 Encounter for screening for osteoporosis (principal); F17.200 Nicotine dependence, unspecified, uncomplicated; M19.90 Unspecified osteoarthritis, unspecified site; R29.890 Loss of height; Z78.0 Asymptomatic menopausal state; Z95.2 Presence of prosthetic heart valve

== ENCOUNTER 2017-03-04 23:36 | Emergency (ER) | payer MEDICARE ==
[~2017-03-04] VITALS: Ht 160 cm; Wt 77.1 kg
== END 2017-03-05 01:02 | disposition home or self-care (01) ==
LOC: ED 23:36
DX: S01.01XA Laceration without foreign body of scalp, initial encounter (principal); W18.09XA Striking against other object with subsequent fall, initial encounter; Y93.89 Activity, other specified; Y92.89 Other specified places as the place of occurrence of the external cause; Y99.8 Other external cause status

== ENCOUNTER 2021-02-14 17:16 | Inpatient (IN) | payer MEDICARE ==
[~2021-02-14] VITALS: Ht 167.6 cm; Wt 59.4 kg
[2021-02-14] VITALS (7 sets, daily range): BP systolic 134–169; BP diastolic 62–106
[~2021-02-14 17:16] MED LIST changes: +LEVOFLOXACIN750 M2 PO
[2021-02-14 18:41] LABS: HEMATOCRIT 46.8 % (37.0-47.0); MEAN CELL VOLUME 94.9 fl (81.0-99.0); MEAN CORPUSCULAR HGB 29.2 pg (27.0-31.0); MEAN CORPUSCULAR HGB CONC 30.8 g/dl (33.0-37.0); MEAN PLATELET VOLUME 10.1 fl (9.6-12.3); PLATELET COUNT AUTOMATED 254 10*3/uL (130-400); RED BLOOD COUNT 4.93 10*6/uL (4.10-5.10); RED CELL DISTRI WIDTH 14.8 % (0-14.5); WHITE BLOOD COUNT 11.6 10*3/uL (4.8-10.8)
[2021-02-14 18:59] LABS: ALBUMIN 2.9 gm/dl (3.1-4.5); ALKALINE PHOSPHATASE 66 U/L (45-117); BUN 48 mg/dl (7-24); CHLORIDE 106 mmol/L (98-107); CREATININE 0.78 mg/dL (0.55-1.02); POTASSIUM 3.9 mmol/L (3.5-5.1); SGOT/AST 18 IU/L (3-35); SGPT/ALT 18 U/L (12-78); SODIUM 143 mmol/L (136-145); TOTAL PROTEIN 7.5 gm/dL (6.4-8.2)
[2021-02-14 19:00] LABS: TROPONIN I 0.019 ng/ml (<0.045)
[2021-02-14 19:15] LABS: ATYPICAL LYMPHS 1 % (0-0); TOTAL CELLS COUNTED 100 #CELLS
[2021-02-14 19:16] LABS: PLATELET SUFFICIENCY NORMAL (NORMAL)
[2021-02-15] VITALS: BP 151/64
[2021-02-15 05:28] LABS: BILIRUBIN Negative (Negative); BLOOD Negative (Negative); CLARITY Clear (Clear); COLOR Yellow (Yellow); GLUCOSE Negative (Negative); KETONE Negative (Negative); LEUKO ESTERASE 2+ (Negative); NITRITE Negative (Negative); PH 5.5 (4.5-8.0)
[2021-02-15 06:04] LABS: BACTERIA 3+; WBC 41-50 wbc/hpf (0-5)
[2021-02-15 07:15] LABS: ALBUMIN 2.4 gm/dl (3.1-4.5); ALKALINE PHOSPHATASE 59 U/L (45-117); BUN 41 mg/dl (7-24); CHLORIDE 106 mmol/L (98-107); CHOLESTEROL 122 mg/dL (<200); CREATININE 0.66 mg/dL (0.55-1.02); FREE T4 1.14 ng/dl (0.76-1.46); LDL CHOLESTEROL 67 mg/dL (9-159); POTASSIUM 4.2 mmol/L (3.5-5.1); SGOT/AST 18 IU/L (3-35); SGPT/ALT 15 U/L (12-78); SODIUM 145 mmol/L (136-145); TOTAL PROTEIN 6.7 gm/dL (6.4-8.2); TRIGLYCERIDES 80 mg/dl (<150)
[2021-02-15 07:19] LABS: HEMATOCRIT 46.5 % (37.0-47.0); MEAN CORPUSCULAR HGB 29.7 pg (27.0-31.0); MEAN CORPUSCULAR HGB CONC 29.9 g/dl (33.0-37.0); MEAN PLATELET VOLUME 10.7 fl (9.6-12.3); PLATELET COUNT AUTOMATED 246 10*3/uL (130-400); RED BLOOD COUNT 4.68 10*6/uL (4.10-5.10); RED CELL DISTRI WIDTH 14.9 % (0-14.5); THYROID STIM HORMONE (HS) 0.779 uIU/ml (0.358-4.75); WHITE BLOOD COUNT 8.3 10*3/uL (4.8-10.8)
[2021-02-15 07:24] LABS: MEAN CELL VOLUME 99.4 fl (81.0-99.0)
[2021-02-15 08:00] VITALS: BP 119/40
[2021-02-15 08:12] LABS: VITAMIN D, 25-HYDROXY 18.2 ng/mL (30-100)
[2021-02-15 08:33] LABS: PLATELET SUFFICIENCY NORMAL (NORMAL); TOTAL CELLS COUNTED 100 #CELLS
[2021-02-15 12:00] VITALS: BP 98/60
[2021-02-15 16:00] VITALS: BP 103/89
[2021-02-15 20:00] VITALS: BP 76/62
[2021-02-15 21:00] VITALS: BP 121/56
[2021-02-16] VITALS: BP 132/63
[2021-02-16 06:02] VITALS: BP 156/64
[2021-02-16 07:22] LABS: HEMATOCRIT 44.7 % (37.0-47.0); MEAN CORPUSCULAR HGB 29.7 pg (27.0-31.0); MEAN CORPUSCULAR HGB CONC 31.3 g/dl (33.0-37.0); MEAN PLATELET VOLUME 10.5 fl (9.6-12.3); PLATELET COUNT AUTOMATED 256 10*3/uL (130-400); RED BLOOD COUNT 4.72 10*6/uL (4.10-5.10); RED CELL DISTRI WIDTH 14.3 % (0-14.5); WHITE BLOOD COUNT 9.9 10*3/uL (4.8-10.8)
[2021-02-16 07:27] LABS: MEAN CELL VOLUME 94.7 fl (81.0-99.0)
[2021-02-16 07:29] LABS: CHLORIDE 101 mmol/L (98-107); POTASSIUM 3.7 mmol/L (3.5-5.1); SODIUM 141 mmol/L (136-145)
[2021-02-16 07:47] LABS: ALBUMIN 2.2 gm/dl (3.1-4.5); ALKALINE PHOSPHATASE 54 U/L (45-117); BUN 44 mg/dl (7-24); SGOT/AST 17 IU/L (3-35); SGPT/ALT 17 U/L (12-78); TOTAL PROTEIN 6.5 gm/dL (6.4-8.2)
[2021-02-16 08:00] VITALS: BP 140/54
[2021-02-16 08:10] LABS: BURR CELLS FEW; PLATELET SUFFICIENCY NORMAL (NORMAL); POLYCHROMASIA SLIGHT; TOTAL CELLS COUNTED 100 #CELLS
[2021-02-16 12:00] VITALS: BP 90/44
[2021-02-16 16:00] VITALS: BP 122/52
[2021-02-16 20:00] VITALS: BP 104/70; BP 95/66
[2021-02-17] VITALS: BP 90/76
[2021-02-17 06:14] VITALS: BP 122/64
[2021-02-17 06:18] LABS: HEMATOCRIT 44.5 % (37.0-47.0); MEAN CELL VOLUME 93.9 fl (81.0-99.0); MEAN CORPUSCULAR HGB 29.3 pg (27.0-31.0); MEAN CORPUSCULAR HGB CONC 31.2 g/dl (33.0-37.0); MEAN PLATELET VOLUME 10.3 fl (9.6-12.3); PLATELET COUNT AUTOMATED 215 10*3/uL (130-400); RED BLOOD COUNT 4.74 10*6/uL (4.10-5.10); RED CELL DISTRI WIDTH 14.3 % (0-14.5); WHITE BLOOD COUNT 9.9 10*3/uL (4.8-10.8)
[2021-02-17 06:37] LABS: ALBUMIN 2.2 gm/dl (3.1-4.5); ALKALINE PHOSPHATASE 45 U/L (45-117); BUN 47 mg/dl (7-24); CHLORIDE 102 mmol/L (98-107); POTASSIUM 3.9 mmol/L (3.5-5.1); SGOT/AST 21 IU/L (3-35); SGPT/ALT 17 U/L (12-78); SODIUM 139 mmol/L (136-145); TOTAL PROTEIN 6.2 gm/dL (6.4-8.2)
[2021-02-17 08:00] VITALS: BP 114/50
[2021-02-17 08:07] LABS: PLATELET SUFFICIENCY NORMAL (NORMAL); TOTAL CELLS COUNTED 100 #CELLS
[2021-02-17 12:00] VITALS: BP 112/76
[2021-02-17] MEDS ORDERED: DECADRON6 M1 PO (12:43)
== END 2021-02-17 14:33 | disposition home or self-care (01) | DRG 871 ==
LOC: ED 17:16 → EDHOLD 21:12 → 4E 21:12
PROVIDERS: Family Medicine; Internal Medicine; Physical Therapist; ADMIT Student in an Organized Health Care Education/Training Program; ATTEND Student in an Organized Health Care Education/Training Program
PROC: XW033E5 Introduction of Remdesivir Anti-infective into Peripheral Vein, Percutaneous Approach, New Technology Group 5 (ICD-10-PCS; principal; 2021-02-14)
DX: A41.9 Sepsis, unspecified organism (principal); U07.1 COVID-19; J96.02 Acute respiratory failure with hypercapnia; J96.01 Acute respiratory failure with hypoxia; J12.82 Pneumonia due to coronavirus disease 2019; E43 Unspecified severe protein-calorie malnutrition; I50.33 Acute on chronic diastolic (congestive) heart failure; N17.9 Acute kidney failure, unspecified; J91.8 Pleural effusion in other conditions classified elsewhere; R73.9 Hyperglycemia, unspecified; R65.20 Severe sepsis without septic shock; E83.41 Hypermagnesemia; I35.0 Nonrheumatic aortic (valve) stenosis; J42 Unspecified chronic bronchitis; I11.0 Hypertensive heart disease with heart failure; F17.210 Nicotine dependence, cigarettes, uncomplicated; E53.8 Deficiency of other specified B group vitamins; I27.20 Pulmonary hypertension, unspecified; Z68.21 Body mass index [BMI] 21.0-21.9, adult; Z71.6 Tobacco abuse counseling

== ENCOUNTER 2021-03-02 12:48 | Inpatient (IN) | payer MEDICARE ==
[~2021-03-02] VITALS: Ht 152.4 cm; Wt 60.0 kg
[~2021-03-02 12:48] MED LIST changes: +DECADRON6 M1 PO
[2021-03-02 12:56] VITALS: BP 113/33
[2021-03-02 13:44] LABS: HEMATOCRIT 38.1 % (37.0-47.0); MEAN CELL VOLUME 96.2 fl (81.0-99.0); MEAN CORPUSCULAR HGB 29.5 pg (27.0-31.0); MEAN CORPUSCULAR HGB CONC 30.7 g/dl (33.0-37.0); MEAN PLATELET VOLUME 10.3 fl (9.6-12.3); PLATELET COUNT AUTOMATED 176 10*3/uL (130-400); RED BLOOD COUNT 3.96 10*6/uL (4.10-5.10); RED CELL DISTRI WIDTH 14.6 % (0-14.5)
[2021-03-02 13:59] LABS: ACT PARTIAL THROMBO TIME 29.6 SECONDS (20.0-32.1)
[2021-03-02 14:00] LABS: ALBUMIN 2.3 gm/dl (3.1-4.5); ALKALINE PHOSPHATASE 59 U/L (45-117); BUN 21 mg/dl (7-24); CHLORIDE 99 mmol/L (98-107); CREATININE 0.69 mg/dL (0.55-1.02); POTASSIUM 4.4 mmol/L (3.5-5.1); SGOT/AST 18 IU/L (3-35); SGPT/ALT 19 U/L (12-78); SODIUM 135 mmol/L (136-145); TOTAL PROTEIN 6.3 gm/dL (6.4-8.2)
[2021-03-02 14:09] LABS: TROPONIN I < 0.015 ng/ml (<0.045)
[2021-03-02 14:13] LABS: BURR CELLS FEW; PLATELET SUFFICIENCY NORMAL (NORMAL); TOTAL CELLS COUNTED 100 #CELLS
[2021-03-02 17:06] VITALS: BP 95/43
[2021-03-02 18:32] VITALS: BP 99/64
[2021-03-02] MEDS ORDERED: ASPIRIN ADULT L81 M1 PO (18:38)
[2021-03-02 18:47] VITALS: BP 99/64
[2021-03-02 20:00] VITALS: BP 102/47
[2021-03-03] VITALS: BP 106/42
[2021-03-03 06:12] LABS: BASO % 0.1 % (0.0-1.0); EOS # 0.1 10*3/uL (0.0-0.4); EOS % 0.7 % (1.0-4.0); HEMATOCRIT 31.7 % (37.0-47.0); LYMPH # 0.9 10*3/uL (1.3-4.4); MEAN CELL VOLUME 94.6 fl (81.0-99.0); MEAN CORPUSCULAR HGB 29.3 pg (27.0-31.0); MEAN CORPUSCULAR HGB CONC 30.9 g/dl (33.0-37.0); MEAN PLATELET VOLUME 10.5 fl (9.6-12.3); MONO # 1.4 10*3/uL (0.1-1.0); NEUT # 7.7 10*3/uL (2.3-7.9); NEUT % 75.6 % (47.0-73.0); PLATELET COUNT AUTOMATED 168 10*3/uL (130-400); RED BLOOD COUNT 3.35 10*6/uL (4.10-5.10); RED CELL DISTRI WIDTH 14.6 % (0-14.5); WHITE BLOOD COUNT 10.2 10*3/uL (4.8-10.8)
[2021-03-03 06:27] LABS: CHLORIDE 102 mmol/L (98-107); POTASSIUM 3.6 mmol/L (3.5-5.1); SODIUM 137 mmol/L (136-145)
[2021-03-03 06:42] LABS: ALBUMIN 1.8 gm/dl (3.1-4.5); ALKALINE PHOSPHATASE 47 U/L (45-117); BUN 17 mg/dl (7-24); CREATININE 0.62 mg/dL (0.55-1.02); SGOT/AST 13 IU/L (3-35); SGPT/ALT 13 U/L (12-78)
[2021-03-03 08:00] VITALS: BP 95/34
[2021-03-03 12:00] VITALS: BP 95/34
[2021-03-03 16:00] VITALS: BP 98/48
[2021-03-03 20:00] VITALS: BP 103/41
[2021-03-04] VITALS: BP 114/52
[2021-03-04 06:18] LABS: BASO % 0.1 % (0.0-1.0); EOS # 0.2 10*3/uL (0.0-0.4); HEMATOCRIT 30.8 % (37.0-47.0); LYMPH # 0.9 10*3/uL (1.3-4.4); LYMPH % 12.3 % (27.0-41.0); MEAN CELL VOLUME 95.1 fl (81.0-99.0); MEAN CORPUSCULAR HGB 29.9 pg (27.0-31.0); MEAN CORPUSCULAR HGB CONC 31.5 g/dl (33.0-37.0); MEAN PLATELET VOLUME 10.4 fl (9.6-12.3); MONO % 13.8 % (3.0-9.0); NEUT # 5.3 10*3/uL (2.3-7.9); NEUT % 71.4 % (47.0-73.0); PLATELET COUNT AUTOMATED 187 10*3/uL (130-400); RED BLOOD COUNT 3.24 10*6/uL (4.10-5.10); RED CELL DISTRI WIDTH 14.6 % (0-14.5); WHITE BLOOD COUNT 7.4 10*3/uL (4.8-10.8)
[2021-03-04 06:35] LABS: ALBUMIN 1.7 gm/dl (3.1-4.5); ALKALINE PHOSPHATASE 48 U/L (45-117); BUN 19 mg/dl (7-24); CHLORIDE 99 mmol/L (98-107); CREATININE 0.57 mg/dL (0.55-1.02); SGOT/AST 16 IU/L (3-35); SGPT/ALT 14 U/L (12-78); SODIUM 139 mmol/L (136-145); TOTAL PROTEIN 5.1 gm/dL (6.4-8.2)
[2021-03-04 08:00] VITALS: BP 94/36
[2021-03-04 12:00] VITALS: BP 82/34
[2021-03-04 16:00] VITALS: BP 101/50
[2021-03-04 20:00] VITALS: BP 106/81
[2021-03-05] VITALS: BP 99/46
[2021-03-05 06:08] LABS: BASO % 0.3 % (0.0-1.0); EOS # 0.1 10*3/uL (0.0-0.4); EOS % 2.3 % (1.0-4.0); HEMATOCRIT 34.6 % (37.0-47.0); LYMPH # 1.1 10*3/uL (1.3-4.4); LYMPH % 17.9 % (27.0-41.0); MEAN CELL VOLUME 96.1 fl (81.0-99.0); MEAN CORPUSCULAR HGB CONC 31.2 g/dl (33.0-37.0); MEAN PLATELET VOLUME 9.9 fl (9.6-12.3); MONO # 0.7 10*3/uL (0.1-1.0); MONO % 11.7 % (3.0-9.0); NEUT # 4.1 10*3/uL (2.3-7.9); NEUT % 67.5 % (47.0-73.0); PLATELET COUNT AUTOMATED 217 10*3/uL (130-400); RED CELL DISTRI WIDTH 14.6 % (0-14.5); WHITE BLOOD COUNT 6.1 10*3/uL (4.8-10.8)
[2021-03-05 06:24] LABS: BUN 16 mg/dl (7-24); CHLORIDE 102 mmol/L (98-107); POTASSIUM 3.9 mmol/L (3.5-5.1); SODIUM 138 mmol/L (136-145)
[2021-03-05 06:25] LABS: CREATININE 0.64 mg/dL (0.55-1.02)
[2021-03-05 08:00] VITALS: BP 105/41
[2021-03-05] MEDS ORDERED: FUROSEMIDE40 MG PO (10:37)
[2021-03-05] MEDS ORDERED: LOPRESSOR25 MG PO (10:37)
[2021-03-05] MEDS ORDERED: K-TAB10 MEQ PO (10:42)
== END 2021-03-05 13:57 | disposition home or self-care (01) | DRG 299 ==
LOC: ED 12:48 → 4E 14:20 → EDHOLD 14:20 → 4E 16:57
PROVIDERS: Emergency Medicine; Internal Medicine; Registered Nurse; ADMIT Student in an Organized Health Care Education/Training Program; ATTEND Student in an Organized Health Care Education/Training Program
DX: I82.4Y3 Acute embolism and thrombosis of unspecified deep veins of proximal lower extremity, bilateral (principal); E43 Unspecified severe protein-calorie malnutrition; J96.21 Acute and chronic respiratory failure with hypoxia; I50.33 Acute on chronic diastolic (congestive) heart failure; E87.1 Hypo-osmolality and hyponatremia; K92.2 Gastrointestinal hemorrhage, unspecified; R65.10 Systemic inflammatory response syndrome (SIRS) of non-infectious origin without acute organ dysfunction; I50.813 Acute on chronic right heart failure; I11.0 Hypertensive heart disease with heart failure; F17.210 Nicotine dependence, cigarettes, uncomplicated; J44.9 Chronic obstructive pulmonary disease, unspecified; R73.9 Hyperglycemia, unspecified; E83.41 Hypermagnesemia; I35.0 Nonrheumatic aortic (valve) stenosis; D64.9 Anemia, unspecified; I95.89 Other hypotension; E87.6 Hypokalemia; I05.0 Rheumatic mitral stenosis; S30.811A Abrasion of abdominal wall, initial encounter; X58.XXXA Exposure to other specified factors, initial encounter; Y93.89 Activity, other specified; Y92.89 Other specified places as the place of occurrence of the external cause; Z79.01 Long term (current) use of anticoagulants; Z68.28 Body mass index [BMI] 28.0-28.9, adult; Z95.2 Presence of prosthetic heart valve; Y99.8 Other external cause status; Z86.16 Personal history of COVID-19

== ENCOUNTER → 2021-03-09 | Outpatient (CLI) | payer MEDICARE ==
[~2021-03-09] MED LIST changes: +ASPIRIN ADULT L81 M1 PO; +FUROSEMIDE40 MG PO; +K-TAB10 MEQ PO; +LOPRESSOR25 MG PO
[2021-03-09 12:51] LABS: BUN 17 mg/dl (7-24); CHLORIDE 101 mmol/L (98-107); CREATININE 0.78 mg/dL (0.55-1.02); POTASSIUM 4.4 mmol/L (3.5-5.1); SODIUM 135 mmol/L (136-145)
== END | disposition home or self-care (01) ==
LOC: LAB 12:24
PROVIDERS: Hospitalist; ATTEND Student in an Organized Health Care Education/Training Program
DX: I50.9 Heart failure, unspecified (principal)

== ENCOUNTER → 2021-03-18 | Outpatient (CLI) | payer MEDICARE | END | disposition home or self-care (01) | LOC: RESCLI 00:42 | PROVIDERS: ATTEND Internal Medicine | DX: R60.0 Localized edema (principal); I50.32 Chronic diastolic (congestive) heart failure; I34.2 Nonrheumatic mitral (valve) stenosis; I82.412 Acute embolism and thrombosis of left femoral vein; I10 Essential (primary) hypertension; J44.9 Chronic obstructive pulmonary disease, unspecified; E55.9 Vitamin D deficiency, unspecified; I11.0 Hypertensive heart disease with heart failure ==

== ENCOUNTER → 2021-03-23 | Outpatient (CLI) | payer MEDICARE ==
[2021-03-23 15:16] LABS: BUN 19 mg/dl (7-24); CHLORIDE 97 mmol/L (98-107); CREATININE 0.83 mg/dL (0.55-1.02); POTASSIUM 4.5 mmol/L (3.5-5.1); SODIUM 130 mmol/L (136-145)
== END | disposition home or self-care (01) ==
LOC: LAB 00:58 → WOUNDCARE 00:58
PROVIDERS: Internal Medicine Cardiovascular Disease; ATTEND Nurse Practitioner Family
DX: I89.0 Lymphedema, not elsewhere classified (principal); I50.9 Heart failure, unspecified; J44.9 Chronic obstructive pulmonary disease, unspecified; E55.9 Vitamin D deficiency, unspecified; I35.0 Nonrheumatic aortic (valve) stenosis; Z86.718 Personal history of other venous thrombosis and embolism; Z86.16 Personal history of COVID-19; Z87.891 Personal history of nicotine dependence; Z79.82 Long term (current) use of aspirin; Z79.899 Other long term (current) drug therapy

== ENCOUNTER 2021-09-09 12:51 | Emergency (ER) | payer MEDICARE ==
[~2021-09-09] VITALS: Ht 375.9 cm; Wt 61.2 kg
[2021-09-09 13:31] LABS: BASO % 0.6 % (0.0-1.0); EOS # 0.2 10*3/uL (0.0-0.4); EOS % 2.5 % (1.0-4.0); HEMATOCRIT 37.1 % (37.0-47.0); LYMPH # 0.9 10*3/uL (1.3-4.4); LYMPH % 14.3 % (27.0-41.0); MEAN CELL VOLUME 88.8 fl (81.0-99.0); MEAN CORPUSCULAR HGB 27.5 pg (27.0-31.0); MEAN PLATELET VOLUME 9.4 fl (9.6-12.3); MONO # 0.8 10*3/uL (0.1-1.0); MONO % 11.7 % (3.0-9.0); NEUT # 4.6 10*3/uL (2.3-7.9); NEUT % 70.6 % (47.0-73.0); PLATELET COUNT AUTOMATED 291 10*3/uL (130-400); RED BLOOD COUNT 4.18 10*6/uL (4.10-5.10); RED CELL DISTRI WIDTH 16.8 % (0-14.5); WHITE BLOOD COUNT 6.5 10*3/uL (4.8-10.8)
[2021-09-09 13:49] LABS: CREATININE 1.27 mg/dL (0.55-1.02); POTASSIUM 5.1 mmol/L (3.5-5.1); TOTAL PROTEIN 7.6 gm/dL (6.4-8.2)
== END 2021-09-09 15:53 | disposition home or self-care (01) ==
LOC: ED 12:51
PROVIDERS: Family Medicine
DX: E86.0 Dehydration (principal); Z79.82 Long term (current) use of aspirin; F17.210 Nicotine dependence, cigarettes, uncomplicated

== ENCOUNTER 2021-09-24 01:37 | Emergency (ER) | payer MEDICARE ==
[2021-09-24 02:06] LABS: BASO % 0.5 % (0.0-1.0); EOS # 0.3 10*3/uL (0.0-0.4); HEMATOCRIT 35.4 % (37.0-47.0); LYMPH # 2.2 10*3/uL (1.3-4.4); LYMPH % 26.2 % (27.0-41.0); MEAN CELL VOLUME 88.9 fl (81.0-99.0); MEAN CORPUSCULAR HGB 27.9 pg (27.0-31.0); MEAN CORPUSCULAR HGB CONC 31.4 g/dl (33.0-37.0); MEAN PLATELET VOLUME 9.3 fl (9.6-12.3); MONO # 0.8 10*3/uL (0.1-1.0); MONO % 9.9 % (3.0-9.0); NEUT % 59.7 % (47.0-73.0); PLATELET COUNT AUTOMATED 353 10*3/uL (130-400); RED BLOOD COUNT 3.98 10*6/uL (4.10-5.10); RED CELL DISTRI WIDTH 16.7 % (0-14.5); WHITE BLOOD COUNT 8.4 10*3/uL (4.8-10.8)
[2021-09-24 02:23] LABS: CREATININE 1.29 mg/dL (0.55-1.02); POTASSIUM 5.3 mmol/L (3.5-5.1); TOTAL PROTEIN 7.2 gm/dL (6.4-8.2)
== END 2021-09-24 04:05 | disposition short-term general hospital (02) ==
LOC: ED 01:37
PROVIDERS: Emergency Medicine
DX: I44.2 Atrioventricular block, complete (principal); I11.0 Hypertensive heart disease with heart failure; I50.9 Heart failure, unspecified; F17.210 Nicotine dependence, cigarettes, uncomplicated; Z86.718 Personal history of other venous thrombosis and embolism

== ENCOUNTER → 2021-11-09 | Outpatient (CLI) | payer MEDICARE ==
[2021-11-09 13:21] LABS: BUN 22 mg/dl (7-24); CHLORIDE 99 mmol/L (98-107); CREATININE 0.99 mg/dL (0.55-1.02); POTASSIUM 4.8 mmol/L (3.5-5.1); SODIUM 134 mmol/L (136-145)
== END | disposition home or self-care (01) ==
LOC: LAB 12:41
PROVIDERS: ATTEND Internal Medicine Cardiovascular Disease
DX: I50.9 Heart failure, unspecified (principal)

== ENCOUNTER → 2022-01-17 | Outpatient (CLI) | payer MEDICARE | END | disposition home or self-care (01) | LOC: RESCLI 08:16 | PROVIDERS: ATTEND Internal Medicine | DX: E03.9 Hypothyroidism, unspecified (principal); I48.92 Unspecified atrial flutter; I11.0 Hypertensive heart disease with heart failure; I50.9 Heart failure, unspecified; Z79.899 Other long term (current) drug therapy; Z79.01 Long term (current) use of anticoagulants; Z79.82 Long term (current) use of aspirin ==

== ENCOUNTER → 2022-02-27 | Outpatient (CLI) | payer MEDICARE ==
[2022-02-27 17:21] LABS: BASO # 0.1 10*3/uL (0.0-0.1); BASO % 0.7 % (0.0-1.0); EOS # 0.3 10*3/uL (0.0-0.4); EOS % 4.1 % (1.0-4.0); HEMATOCRIT 37.5 % (37.0-47.0); LYMPH # 1.5 10*3/uL (1.3-4.4); LYMPH % 21.2 % (27.0-41.0); MEAN CELL VOLUME 94.9 fl (81.0-99.0); MEAN CORPUSCULAR HGB 30.4 pg (27.0-31.0); MEAN PLATELET VOLUME 9.4 fl (9.6-12.3); MONO # 0.7 10*3/uL (0.1-1.0); MONO % 9.9 % (3.0-9.0); NEUT # 4.6 10*3/uL (2.3-7.9); NEUT % 63.8 % (47.0-73.0); PLATELET COUNT AUTOMATED 301 10*3/uL (130-400); RED BLOOD COUNT 3.95 10*6/uL (4.10-5.10); RED CELL DISTRI WIDTH 13.2 % (0-14.5); WHITE BLOOD COUNT 7.3 10*3/uL (4.8-10.8)
[2022-02-27 17:46] LABS: CREATININE 1.08 mg/dL (0.55-1.02); POTASSIUM 4.9 mmol/L (3.5-5.1); TOTAL PROTEIN 7.6 gm/dL (6.4-8.2)
== END | disposition home or self-care (01) ==
LOC: RESCLI 01:58
PROVIDERS: Student in an Organized Health Care Education/Training Program; ATTEND Internal Medicine
DX: I11.0 Hypertensive heart disease with heart failure (principal); I50.32 Chronic diastolic (congestive) heart failure; E03.9 Hypothyroidism, unspecified; I48.92 Unspecified atrial flutter; D64.9 Anemia, unspecified; E55.9 Vitamin D deficiency, unspecified; M81.0 Age-related osteoporosis without current pathological fracture; J44.9 Chronic obstructive pulmonary disease, unspecified; E53.8 Deficiency of other specified B group vitamins; Z98.890 Other specified postprocedural states; Z13.820 Encounter for screening for osteoporosis; Z79.82 Long term (current) use of aspirin; Z87.891 Personal history of nicotine dependence; Z79.01 Long term (current) use of anticoagulants; Z79.899 Other long term (current) drug therapy

== ENCOUNTER → 2022-03-27 | Outpatient (CLI) | payer MEDICARE | END | disposition home or self-care (01) | LOC: RAD 03-24 09:30 | PROVIDERS: ATTEND Internal Medicine | DX: M81.0 Age-related osteoporosis without current pathological fracture (principal); Z13.820 Encounter for screening for osteoporosis; E55.9 Vitamin D deficiency, unspecified ==